=== PATIENT | male | born 1975 | race Hispanic/Latino ===

== ENCOUNTER 2022-04-27 16:32 | Emergency (ER) | payer OTHER ==
[~2022-04-27] VITALS: Ht 162.6 cm; Wt 83.0 kg
[~2022-04-27 16:32] MED LIST: ALL DAY ALLERGY10 M3 PO; AMITRIPTYLINE100 MG PO; CITALOPRAM HBR40 MG PO; CLOTRIMAZOLE TOP; COL-RITE250 MG PO; COLACE100 MG PO; CRESTOR5 MG PO; DILTIAZEM HCL10 GM TOP; FLONASE ALLERG9.9 ML NAS; HYDROCODON-ACE1 EA10 PO; HYDROCORT-PRAMO30 GM; HYDROXYZINE HCL50 MG PO; MELATONIN3 M3 PO; METAMUCIL FIBE3.4 GM PO; MIRALAX17 GM PO; MOBIC15 MG PO; NABUMETONE750 MG PO; NASACORT10.8 ML NAS; OMEPRAZOLE20 MG PO; PROSCAR5 MG PO; SALINE MIST44 ML INH; TYLENOL EXTRA500 MG PO; VISINE15 ML OPTH
== END 2022-04-28 03:29 | disposition home or self-care (01) ==
LOC: ED 16:32
DX: H60.91 Unspecified otitis externa, right ear (principal); E78.5 Hyperlipidemia, unspecified; E11.9 Type 2 diabetes mellitus without complications; Z87.891 Personal history of nicotine dependence; Z88.6 Allergy status to analgesic agent; Z79.899 Other long term (current) drug therapy; Z20.822 Contact with and (suspected) exposure to COVID-19
CPT/HCPCS: 36415; 70491; 80053; 85025; 87502; 99284-25; C9803; Q9967; U0003